=== PATIENT | female | born 1985 | race Caucasian/White ===

== ENCOUNTER 2016-08-22 05:13 | Day surgery (SDC) | payer OTHER ==
[~2016-08-22] VITALS: Ht 175.3 cm; Wt 89.3 kg
[~2016-08-22 05:13] MED LIST: AUGMENTIN875 MG PO; BACTRIM,SEPT1 TABLET PO; CAMRESE 0.15-01 EACH PO; CEFDINIR300 MG PO; CLONAZEPAM0.5 MG PO; DEPO-PROVER150 MG/ML IM; DIFLUCAN150 MG PO; ENDOCET 5-3251 EACH PO; ESCITALOPRAM OX10 MG PO; HYDROCODON-ACE1 EAC7 PO; IBUPROFEN800 MG PO; INDOCIN25 MG PO; KLONOPIN0.5 M1 PO; NORCO 5/3251 TABLET PO; PERCOCET 5/31 TABLET PO; PRENATAL TABLE1 EAC3 PO; PYRIDIUM200 MG PO; SPRINTEC1 EACH PO; TORADOL10 MG PO; ULTRACET1 TABLET PO; ZANTAC150 MG PO; ZOFRAN ODT4 MG PO
[2016-08-22 05:47] VITALS: BP 114/75
[2016-08-22] MEDS ORDERED: PERCOCET 5/31 TABLET PO (08:38)
[2016-08-22 09:52] VITALS: BP 119/75
[2016-08-22 10:55] VITALS: BP 107/60
== END 2016-08-22 11:20 | disposition home or self-care (01) ==
LOC: SDC 05:13
PROC: 0U574ZZ Destruction of Bilateral Fallopian Tubes, Percutaneous Endoscopic Approach (ICD-10-PCS; principal; 2016-08-22)
DX: Z30.2 Encounter for sterilization (principal); F17.200 Nicotine dependence, unspecified, uncomplicated
CPT/HCPCS: J0330; J0690; J1100; J1170; J1885; J2250; J2405; J3010; S0020

== ENCOUNTER 2017-03-17 08:55 | Emergency (ER) | payer OTHER ==
[~2017-03-17] VITALS: Ht 177.8 cm; Wt 88.2 kg
[2017-03-17] MEDS ORDERED: TRAZODONE HCL50 MG PO (09:15)
[2017-03-17 09:48] LABS: EOSINOPHIL (%) 1.3 % (0-5); EOSINOPHIL COUNT 0.1 K/uL (0-0.3); HEMATOCRIT 39.6 % (36.0-46.0); IMMATURE GRANULOCYTE (%) 0.4 % (0.0-0.7); INSTRUMENT ABS NEUTROPHIL CT 7.4 K/uL; LYMPHOCYTE COUNT 1.3 K/uL (1.0-2.8); MCHC 32.3 G/DL (30.0-36.0); MCV 89.6 FL (83-99); MEAN PLAT.VOLUME 8.9 uM^3 (9.5-12.4); MONOCYTE (%) 9.2 % (3-12); MONOCYTE COUNT 0.9 K/uL (0-0.8); NEUTROPHIL (%) 75.7 % (45-76); NEUTROPHIL COUNT 7.4 K/uL (1.8-6.4); PLATELET COUNT 256 K/uL (156-360); RBC DIS.WIDTH-CV 12.7 % (11.8-14.6); RBC DIS.WIDTH-SD 41.7 % (39-53); RED BLOOD COUNT 4.42 M/uL (3.80-5.20); WHITE BLOOD COUNT 9.8 K/uL (4.1-10.2)
[2017-03-17 10:02] LABS: CHLORIDE 108 mEq/L (99-109); POTASSIUM 3.6 mEq/L (3.7-5.4); SODIUM 142 mEq/L (136-147)
[2017-03-17 10:04] LABS: GLUCOSE 85 mg/dL (70-99)
[2017-03-17 10:05] LABS: ANION GAP 10 MEQ/L (2-14)
[2017-03-17 10:06] LABS: TOTAL BILIRUBIN 0.5 mg/dL (0.0-1.0)
[2017-03-17 10:08] LABS: ALKALINE PHOSPHATASE 65 IU/L (3-129); GFR ESTIMATE (CALCULATED) > 59 mL/min/
[2017-03-17 10:09] LABS: UREA NITROGEN (BUN) 11 mg/dL (9-23)
[2017-03-17 10:11] LABS: LIPASE 48 U/L (1.0-51.0)
[2017-03-17] MEDS ORDERED: ZOFRAN4 MG PO (14:32)
[2017-03-17] MEDS ORDERED: BENTYL20 MG PO (14:32)
[2017-03-17] MEDS ORDERED: TYLENOL WITH C1 EACH PO (14:57)
[2017-03-17 15:01] VITALS: BP 131/76
== END 2017-03-17 15:11 | disposition home or self-care (01) ==
LOC: EME 08:55
PROVIDERS: Emergency Medicine
DX: R10.10 Upper abdominal pain, unspecified (principal); Z87.440 Personal history of urinary (tract) infections; F17.200 Nicotine dependence, unspecified, uncomplicated
CPT/HCPCS: 74177; 76705; 80053; 83690; 85025; J2405; J3010; J7030

== ENCOUNTER 2017-05-24 15:21 | Emergency (ER) | payer OTHER ==
[~2017-05-24] VITALS: Ht 175.3 cm; Wt 89.5 kg
[~2017-05-24 15:21] MED LIST changes: +BENTYL20 MG PO; +TRAZODONE HCL50 MG PO; +TYLENOL WITH C1 EACH PO; +ZOFRAN4 MG PO
[2017-05-24 16:15] LABS: ADD MIUA? YES; BILIRUBIN NEGATIVE; BLOOD SMALL; COLOR YELLOW ((YELLOW)); GLUCOSE (STRIP) NEGATIVE; KETONES NEGATIVE; LEUKOCYTES LARGE; NITRITE POSITIVE; PROTEIN (STRIP) 30; UROBILINOGEN 0.2 MG/DL (0.2-1.0)
[2017-05-24 16:28] LABS: INTERNAL CONTROL VALID? YES
[2017-05-24 16:33] LABS: RED BLOOD CELLS 0-5 /HPF (0-5); WHITE BLOOD CELLS 20-30 /HPF (0-5)
[2017-05-24 16:34] LABS: BACTERIA 3+ /HPF; CASTS NONE SEEN /LPF; CRYSTALS NONE SEEN; EPITHELIAL CELLS 1+ /HPF; MUCUS 1+ /LPF; UCUL ADDED? YES
[2017-05-24 19:36] LABS: BASOPHIL COUNT 0.1 K/uL (0-0.1); EOSINOPHIL (%) 1.8 % (0-5); EOSINOPHIL COUNT 0.2 K/uL (0-0.3); HEMATOCRIT 40.1 % (36.0-46.0); IMMATURE GRANULOCYTE (%) 0.6 % (0.0-0.7); IMMATURE GRANULOCYTE COUNT 0.1 K/uL; INSTRUMENT ABS NEUTROPHIL CT 6.4 K/uL; LYMPHOCYTE COUNT 2.6 K/uL (1.0-2.8); MCH 29.5 PG (29.0-34.0); MCHC 32.9 G/DL (30.0-36.0); MCV 89.5 FL (83-99); MEAN PLAT.VOLUME 8.6 uM^3 (9.5-12.4); MONOCYTE (%) 7.2 % (3-12); MONOCYTE COUNT 0.7 K/uL (0-0.8); NEUTROPHIL (%) 64.3 % (45-76); NEUTROPHIL COUNT 6.4 K/uL (1.8-6.4); PLATELET COUNT 310 K/uL (156-360); RBC DIS.WIDTH-CV 13.2 % (11.8-14.6); RBC DIS.WIDTH-SD 43.3 % (39-53); RED BLOOD COUNT 4.48 M/uL (3.80-5.20)
[2017-05-24 19:45] LABS: CHLORIDE 107 mEq/L (99-109); POTASSIUM 3.8 mEq/L (3.7-5.4); SODIUM 140 mEq/L (136-147)
[2017-05-24 19:46] LABS: GLUCOSE 89 mg/dL (70-99)
[2017-05-24 19:48] LABS: ANION GAP 11 MEQ/L (2-14)
[2017-05-24 19:50] LABS: GFR ESTIMATE (CALCULATED) > 59 mL/min/
[2017-05-24 19:51] LABS: UREA NITROGEN (BUN) 11 mg/dL (9-23)
[2017-05-24] MEDS ORDERED: MACROBID100 MG PO (22:16)
[2017-05-24] MEDS ORDERED: MOTRIN800 MG PO (22:16)
[2017-05-24] MEDS ORDERED: PERCOCET 5/31 TABLET PO (22:16)
[2017-05-24 22:39] VITALS: BP 116/70
[2017-05-25 13:17] LABS: CHLAMYDIA TRACHOMATIS NEGATIVE; NEISSERIA GONORRHOEAE NEGATIVE
== END 2017-05-24 22:41 | disposition home or self-care (01) ==
LOC: EME 15:21
PROVIDERS: Emergency Medicine
DX: N39.0 Urinary tract infection, site not specified (principal); Z87.440 Personal history of urinary (tract) infections; F41.9 Anxiety disorder, unspecified; F17.200 Nicotine dependence, unspecified, uncomplicated; Z88.8 Allergy status to other drugs, medicaments and biological substances
CPT/HCPCS: 74177; 76856; 80048; 81003; 84703; 85025; 87077; 87086; 87186; 87210; 87491; 87591; 99281; 99285; J7040

== ENCOUNTER 2017-06-19 15:39 | Emergency (ER) | payer OTHER ==
[~2017-06-19] VITALS: Ht 175.3 cm; Wt 91.1 kg
[~2017-06-19 15:39] MED LIST changes: +MACROBID100 MG PO; +MOTRIN800 MG PO
[2017-06-19 16:30] LABS: ADD MIUA? YES; BILIRUBIN NEGATIVE; BLOOD SMALL; COLOR YELLOW ((YELLOW)); GLUCOSE (STRIP) NEGATIVE; KETONES NEGATIVE; LEUKOCYTES TRACE; NITRITE POSITIVE; PROTEIN (STRIP) NEGATIVE; SPECIFIC GRAVITY 1.024 (1.000-1.030); UROBILINOGEN 0.2 MG/DL (0.2-1.0)
[2017-06-19 16:43] LABS: MCH 30.1 PG (29.0-34.0); MCHC 32.9 G/DL (30.0-36.0); MCV 91.3 FL (83-99); MEAN PLAT.VOLUME 8.9 uM^3 (9.5-12.4); PLATELET COUNT 280 K/uL (156-360); RBC DIS.WIDTH-CV 12.9 % (11.8-14.6); RBC DIS.WIDTH-SD 43.2 % (39-53); RED BLOOD COUNT 4.49 M/uL (3.80-5.20); WHITE BLOOD COUNT 8.6 K/uL (4.1-10.2)
[2017-06-19 16:56] LABS: CHLORIDE 109 mEq/L (99-109); POTASSIUM 4.1 mEq/L (3.7-5.4); SODIUM 138 mEq/L (136-147)
[2017-06-19 16:58] LABS: GLUCOSE 97 mg/dL (70-99)
[2017-06-19 16:59] LABS: AMORPHOUS URATES CRYSTALS 1+; BACTERIA 2+ /HPF; CASTS NONE SEEN /LPF; CRYSTALS PRESENT; EPITHELIAL CELLS 1+ /HPF; MUCUS NONE SEEN /LPF; RED BLOOD CELLS 0-5 /HPF (0-5); UCUL ADDED? YES; WHITE BLOOD CELLS 0-5 /HPF (0-5)
[2017-06-19 16:59] LABS: ANION GAP 8 MEQ/L (2-14)
[2017-06-19 17:00] LABS: TOTAL BILIRUBIN 0.3 mg/dL (0.0-1.0)
[2017-06-19 17:02] LABS: ALKALINE PHOSPHATASE 61 IU/L (3-129); GFR ESTIMATE (CALCULATED) > 59 mL/min/
[2017-06-19 17:03] LABS: UREA NITROGEN (BUN) 14 mg/dL (9-23)
[2017-06-19 17:11] LABS: QUANTITATIVE HCG < 4.0 MIU/ML
[2017-06-19] MEDS ORDERED: MACROBID100 MG PO (21:44)
[2017-06-19] MEDS ORDERED: ULTRAM50 MG PO ×3 (21:44→22:03)
[2017-06-19] MEDS ORDERED: PERCOCET 5/31 TABLET PO (22:01)
[2017-06-19 22:11] VITALS: BP 129/80
== END 2017-06-19 22:12 | disposition home or self-care (01) ==
LOC: EME 15:39
DX: N39.0 Urinary tract infection, site not specified (principal); N88.8 Other specified noninflammatory disorders of cervix uteri; Z98.51 Tubal ligation status; F17.200 Nicotine dependence, unspecified, uncomplicated
CPT/HCPCS: 76856; 80053; 81003; 84702; 85027; 87077; 87086; 87186; 99281; 99284